=== PATIENT | female | born 1955 | race African-American/Black ===

== ENCOUNTER 2019-10-26 15:54 | Emergency (ER) | payer SELFPAY ==
[~2019-10-26] VITALS: Ht 147.3 cm; Wt 51.2 kg
[2019-10-26] MEDS ORDERED: KETOROLAC 15MG/ML VIAL IV ONE (17:15)
[2019-10-26] MEDS ORDERED: HYDROCODONE/ACETAMINOPHEN 5/325MG TABLET PO ONE (18:30)
[2019-10-26] MEDS ORDERED: KETOROLAC 60MG/2ML VIAL IM ONE (18:30)
[2019-10-26 21:30] VITALS: BP 154/74
== END 2019-10-26 21:30 | disposition home or self-care (01) ==
LOC: ER 15:54
DX: S49.91XA Unspecified injury of right shoulder and upper arm, initial encounter (principal); W01.0XXA Fall on same level from slipping, tripping and stumbling without subsequent striking against object, initial encounter; Y93.89 Activity, other specified; Y92.018 Other place in single-family (private) house as the place of occurrence of the external cause
CPT/HCPCS: 73030; 96372; 99283; J1885